=== PATIENT | male | born 1940 | race Caucasian/White ===

== ENCOUNTER 2022-07-01 09:27 | Day surgery (SDC) | payer MEDICARE, OTHER, SELFPAY ==
[2022-06-24 08:56] VITALS: BMI 29.5
--- NOTE | 2022-07-01 07:27 | WPDHPUPDATE1 ---
History and Physical Update Update Date/Time: 07/01/22 07:27 History and Physical has been reviewed, including an updated exam of the patient. There are NO changes in the patient's condition. Risks, benefits, and alternatives have been discussed and questions answered. Patient agrees to proceed with procedure.
--- NOTE | 2022-07-01 08:56 | P.PNAN_ITS ---
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 Patient Data Age: 82 Gender: M Height: 1.75 m Weight: 90.5 kg Allergies Allergy/AdvReac Type Severity Reaction Status Date / Time ciprofloxacin Allergy Unknown Verified 06/24/22 09:16 Home Medications Medication Instructions Recorded Confirmed Type amlodipine 5 mg tablet 5 mg PO DAILY 06/24/22 06/24/22 History atorvastatin 80 mg tablet 80 mg PO DAILY 06/24/22 06/24/22 History cetirizine 10 mg tablet 10 mg PO DAILY 06/24/22 06/24/22 History ezetimibe 10 mg tablet 10 mg PO DAILY 06/24/22 06/24/22 History lansoprazole 30 mg capsule,delayed 30 mg PO DAILY 06/24/22 06/24/22 History release lisinopril 20 mg tablet 20 mg PO DAILY 06/24/22 06/24/22 History metoprolol succinate 50 mg 50 mg PO BID 06/24/22 06/24/22 History tablet,extended release 24 hr Patient hx anesthesia problems: none Family hx anesthesia problems: none Results Review: All pre-operative results and documents have been reviewed as part of the pre- operative evaluation. [facility] Past Medical History Medical History (Updated 07/01/22 @ 08:57 by Mason Berger MD) CAD (coronary artery disease) Diabetes HTN (hypertension) Hyperlipidemia Osteoarthritis Overweight (BMI 25.0-29.9) Surgical History Surgical History (Updated 07/01/22 @ 08:57 by Mason Berger MD) History of coronary artery stent placement S/P AVR (aortic valve replacement) S/P CABG (coronary artery bypass graft) Social History Social History Smoking status: Never smoker Second hand tobacco smoke exposure: No Alcohol intake: never Substance use: never Substance use type: does not use Living arrangements: with family Spiritual care concerns: No Anes - Eval Final PreProcedure Day of Procedure 07/01/22 08:56 Patient weight: overweight Heart: regular rate and rhythm Lungs: clear to auscultation and normal air movement Airway: Mallampati scale class II Neurological: alert and oriented Last oral intake: >/= 8 hours ASA classification: III Emergent: no Anesthetic plan: proceed Anesthesia type and monitoring: monitored anesthesia care Results Review: All pre-operative results and documents have been reviewed as part of the pre- operative evaluation. Informed Consent: The patient's anesthetic plan and its attendant risks and benefits were discussed with the patient/family/POA. Questions were solicited and answers provided to the satisfaction of the patient/family/POA.
[2022-07-01 10:15] VITALS: BP 152/78; PULSE 58; RESP 20; TEMP 36.8; O2SAT 100
[2022-07-01] MEDS: TETRACAINE HCL 0.5% OPHTH SOLN 4 ML BTL 1 DROP AFFCTD EYE ×3 (10:24→10:34)
[2022-07-01 10:48] LABS: Glucose Point of Care 151 mg/dl (65-105)
[2022-07-01] MEDS: LIDOCAINE HCL 2% JELLY 5 ML TUBE 1 APPLIC AFFCTD EYE (10:50)
[2022-07-01] MEDS: LIDOCAINE HCL 1% PF INJ 5 ML VIAL 1 ML INTRAOCULA (11:06)
[2022-07-01] MEDS: NEOMYCIN/POLYMYXIN/DEXAMETH OP OINT 3.5 GM TUBE 1 APPLIC AFFCTD EYE (11:08)
[2022-07-01] MEDS: HOME MEDICATION 1 EACH AFFCTD EYE (11:08)
[2022-07-01 11:20] VITALS: BP 131/61; PULSE 56; RESP 16; O2SAT 99
--- NOTE | 2022-07-01 11:42 | W.PM.PROC2 ---
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 After intravenous sedation and placement of monitors, the patient was prepped and draped in the usual sterile manner. A lid speculum was placed. A paracentesis was made, and preservative free 1% lidocaine was instilled in the anterior chamber. The anterior chamber was then filled with Viscoat viscoelastic. A sarah keratome was used to create the wound. Continuous tear anterior capsulotomy was performed. The lens was hydro dissected before being removed with phacoemulsification. The remaining lenticular cortex was removed with aspiration. The capsular bag was polished and filled with viscoelastic material. An intraocular lens was chosen, inspected, irrigated and placed within the capsular bag where it was seen to be centered and stable. The viscoelastic material was aspirated. The wound was closed and found to be watertight. Ciloxan drops were placed in the eye. The speculum was removed. A Gill shield was applied. The patient tolerated the procedure well and left the operating room in satisfactory condition. Implants See chart Complications None Condition Stable Disposition Same day
[2022-07-01] MEDS: acetaZOLAMIDE TAB 250 MG TABLET PO (11:45)
--- NOTE | 2022-07-01 11:48 | WPDANESPN ---
Anes - Prog Note Post-Op Date/Time: 07/01/22 11:48 Cardiovascular status: normal Respiratory status: normal Airway patency: baseline Mental status: baseline Post-Op hydration status: normal Vital Signs: Last Vital Signs Temp 36.8 C 07/01/22 10:15 Pulse 58 L 07/01/22 10:15 Resp 20 07/01/22 10:15 BP 152/78 H 07/01/22 10:15 Pulse Ox 100 07/01/22 10:15 O2 Del Method Room Air 07/01/22 10:15 Pain Score (VAS): 0 07/01/22 10:46 POC Capillary Glucose 151 H Post-procedural complaints: none Patient Feedback: Patient satisfied with anesthetic care.
== END 2022-07-01 11:55 | disposition home or self-care (01) ==
PROVIDERS: PCP Family Medicine; Visit Provider Student in an Organized Health Care Education/Training Program
PROC: (CPT 66983; principal; 2022-07-01 10:30)
DX: H25.12 Age-related nuclear cataract, left eye (principal)
CPT/HCPCS: 66984